=== PATIENT | male | born 1985 | race Caucasian/White ===

== ENCOUNTER 2016-09-15 22:10 | Emergency (ER) | payer BC ==
--- NOTE | 2016-09-15 22:28 | EDM.PDOC ---
ED HPI GENERAL MEDICAL PROBLEM - General Chief Complaint: Chest Pain Stated Complaint: PT HAS PAIN ON LT SIDE OF BODY Time Seen by Provider: 09/15/16 23:17 - History of Present Illness INITIAL COMMENTS - FREE TEXT/NARRATIVE: HISTORY AND PHYSICAL: History of present illness: Patient's 22-year-old white male presents with left-sided chest pain vaguely described he states it does feel sharp there is [place] no clearly associated shortness breath palpitation diaphoresis nausea vomiting or other complaints he denies drug or alcohol abuse denies any family history denies any other complaints Review of systems: As per history of present illness and below otherwise all systems reviewed and negative. Past medical history: As per history of present illness and as reviewed below otherwise noncontributory. Surgical history: As per history of present illness and as reviewed below otherwise noncontributory. Social history: No reported history of drug or alcohol abuse. Family history: As per history of present illness and as reviewed below otherwise noncontributory. Physical exam: HEENT: Atraumatic, normocephalic, pupils reactive, negative for conjunctival pallor or scleral icterus, mucous membranes moist, throat clear, neck supple, nontender, trachea midline. Lungs: Clear to auscultation, breath sounds equal bilaterally, chest nontender. Heart: S1S2, regular, negative for clicks, rubs, or JVD. Abdomen: Soft, nondistended, nontender. Negative for masses or hepatosplenomegaly. Negative for costovertebral tenderness. Pelvis: Stable nontender. Genitourinary: Deferred. Rectal: Deferred. Extremities: Atraumatic, negative for cords or calf pain. Neurovascular unremarkable. Neuro: Awake, alert, oriented. Cranial nerves II through XII unremarkable. Cerebellum unremarkable. Motor and sensory unremarkable throughout. Exam nonfocal. Diagnostics: Chest x-ray EKG Therapeutics: None Impression: #1 atypical chest pain Definitive disposition and diagnosis as appropriate pending reevaluation and review of above. 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 Pain Score (Numeric/FACES): 7 - Related Data Allergies Allergy/AdvReac Type Severity Reaction Status Date / Time No Known Allergies Allergy Verified 09/15/16 22:15 Home Meds: Home Meds Dexmethylphenidate HCl [Focalin XR] 10 mg PO DAILY 09/15/16 [History] Past Medical History - Past Health History Medical/Surgical History: Denies Medical/Surgical History HEENT History: Reports: None Cardiovascular History: Reports: None Respiratory History: Reports: None Gastrointestinal History: Reports: Other (see below) Other Gastrointestinal History: diverticulum Genitourinary History: Reports: None Musculoskeletal History: Reports: None Neurological History: Reports: None Psychiatric History: Reports: None Endocrine/Metabolic History: Reports: None Hematologic History: Reports: None Dermatologic History: Reports: None - Infectious Disease History Infectious Disease History: Reports: None Social & Family History - Family History Family Medical History: Noncontributory - Tobacco Use Smoking Status *Q: Never Smoker - Recreational Drug Use Recreational Drug Use: No ED ROS GENERAL - Review of Systems Review Of Systems: ROS reveals no pertinent complaints other than HPI. ED EXAM, GENERAL - Physical Exam Exam: See Below (See dictation) Course - Vital Signs Last Recorded V/S: Last Vital Signs Temp 36.6 C 09/15/16 22:16 Pulse 100 09/15/16 22:16 Resp 16 09/15/16 22:16 BP 115/78 09/15/16 22:16 Pulse Ox 96 09/15/16 22:16 - Orders/Labs/Meds Orders: Active Orders 24 hr Category Date Time Status EKG 12 Lead [EKG Documentation Completion] [RC] ROUTINE Care 09/15/16 22:27 Active Chest 1V Frontal [CR] Stat Exams 09/15/16 22:18 Taken Departure - Departure Time of Disposition: 22:28 Disposition: Home, Self-Care 01 Condition: good Clinical Impression: Atypical chest pain Forms: ED Department Discharge - My Orders Last 24 Hours: My Active Orders 09/15/16 22:18 Chest 1V Frontal [CR] Stat 09/15/16 22:27 EKG 12 Lead [EKG Documentation Completion] [RC] ROUTINE - Assessment/Plan Last 24 Hours: My Active Orders 09/15/16 22:18 Chest 1V Frontal [CR] Stat 09/15/16 22:27 EKG 12 Lead [EKG Documentation Completion] [RC] ROUTINE
[2016-09-15 23:32] VITALS: BP 110/64
--- NOTE | 2016-09-18 15:47 | CR ---
EXAM DATE: 09/15/16 PATIENT'S AGE: 30 Patient: CRISTHIAN MCGUIRE Facility: [place], [place] Site . Site : [id number] Study: XRay Chest [id number]/27/2017 10:39:05 PM Ordering Physician: Doctor Christian Final Report: Indication: Chest pain, shortness of breath Technique: Chest 1 view. Comparison: None Findings: Cardiovascular and mediastinum: Heart size and vasculature are normal in caliber and appearance. Mediastinum is within normal limits. Lungs and pleural space: Lungs are clear. No sign of infiltrate or mass. No sign of pleural effusion. No pneumothorax. Bones and soft tissues: No significant findings. Impression: No sign of acute disease. Dictated by Risa Davidson MD @ Sep 15 2016 10:42PM (Electronic Signature) Report Signed by Proxy. SINAN
== END 2016-09-15 23:30 | disposition home or self-care (01) ==
LOC: MW.ED 22:10
DX: R07.89 Other chest pain (principal)
CPT/HCPCS: 71010; 71010-26; 93005; 99283; 99284-25